=== PATIENT | female | born 1960 | race Caucasian/White ===

== ENCOUNTER → 2020-04-29 | Outpatient (CLI) | payer OTHER ==
[~2020-04-29] MED LIST: AMLODIPINE BESY10 MG PO; ARTIFICIAL TEAR15 M6 EYEBOTH; CARAFATE1 GM PO; ESCITALOPRAM OX10 MG PO; HYDROCODONE BIT10 MG PO; HYDROXYZINE HCL10 MG PO; KISQALI PO; LEXAPRO10 MG PO; NORCO 5-325 TA1 EACH PO; NORVASC10 MG PO; PHENERGAN 25 MG25 M1 PO; PROMETHAZINE HC25 M1 PO; PROTONIX 40 MG40 M1 PO; PROTONIX40 MG PO; TYLENOL 500 MG500 MG PO
[2020-04-29 09:37] LABS: HEMOGLOBIN 12.2 gm/dl (12.3-15.3); RED BLOOD COUNT 4.44 M/UL (4.00-5.10); WHITE BLOOD COUNT 7.8 K/UL (4.5-11.0)
[2020-04-29 10:04] LABS: BUN/CREATININE RATIO 12 (0-10)
== END ==
LOC: CT 08:30
PROVIDERS: Internal Medicine Hematology & Oncology
DX: C50.811 Malignant neoplasm of overlapping sites of right female breast (principal); C79.51 Secondary malignant neoplasm of bone; R91.8 Other nonspecific abnormal finding of lung field; K76.89 Other specified diseases of liver; K83.8 Other specified diseases of biliary tract; Z90.49 Acquired absence of other specified parts of digestive tract; K57.90 Diverticulosis of intestine, part unspecified, without perforation or abscess without bleeding
CPT/HCPCS: 36415; 71260; 80053; 85025; Q9967

== ENCOUNTER → 2020-06-27 | Outpatient (CLI) | payer OTHER | LOC: CT 11:33 | DX: C50.811 Malignant neoplasm of overlapping sites of right female breast (principal); C79.51 Secondary malignant neoplasm of bone; Z17.0 Estrogen receptor positive status [ER+]; R91.8 Other nonspecific abnormal finding of lung field; K76.89 Other specified diseases of liver | CPT/HCPCS: 36415; 71260; 82565; Q9967 ==

== ENCOUNTER → 2020-09-18 | Outpatient (CLI) | payer OTHER ==
[2020-09-18 13:56] LABS: HEMOGLOBIN 11.7 gm/dl (12.3-15.3); RED BLOOD COUNT 4.34 M/UL (4.00-5.10); WHITE BLOOD COUNT 3.5 K/UL (4.5-11.0)
[2020-09-18 14:37] LABS: BUN/CREATININE RATIO 11 (0-10)
== END ==
LOC: LAB 13:18
PROVIDERS: Internal Medicine Hematology & Oncology
DX: C50.811 Malignant neoplasm of overlapping sites of right female breast (principal); C79.51 Secondary malignant neoplasm of bone; Z17.0 Estrogen receptor positive status [ER+]; Z85.3 Personal history of malignant neoplasm of breast
CPT/HCPCS: 36415; 80053; 85025

== ENCOUNTER → 2020-09-19 | Outpatient (CLI) | payer OTHER | LOC: CT 08:53 | DX: C50.811 Malignant neoplasm of overlapping sites of right female breast (principal); C79.51 Secondary malignant neoplasm of bone; C78.7 Secondary malignant neoplasm of liver and intrahepatic bile duct; M89.9 Disorder of bone, unspecified; K83.1 Obstruction of bile duct; E27.9 Disorder of adrenal gland, unspecified; Z17.0 Estrogen receptor positive status [ER+]; Z85.3 Personal history of malignant neoplasm of breast | CPT/HCPCS: 71260; Q9967 ==

== ENCOUNTER → 2020-10-03 | Day surgery (SDC) | payer OTHER | END | disposition home or self-care (01) | LOC: OR 06:11 | PROVIDERS: Surgery | PROC: 02HV33Z Insertion of Infusion Device into Superior Vena Cava, Percutaneous Approach (ICD-10-PCS; principal; 2020-10-03 07:30) | DX: C50.911 Malignant neoplasm of unspecified site of right female breast (principal); C79.51 Secondary malignant neoplasm of bone; I10 Essential (primary) hypertension; I38 Endocarditis, valve unspecified; K21.9 Gastro-esophageal reflux disease without esophagitis; G43.909 Migraine, unspecified, not intractable, without status migrainosus; M19.90 Unspecified osteoarthritis, unspecified site; G89.29 Other chronic pain; M54.9 Dorsalgia, unspecified; Z88.0 Allergy status to penicillin; Z88.2 Allergy status to sulfonamides; Z88.5 Allergy status to narcotic agent; Z88.8 Allergy status to other drugs, medicaments and biological substances; Z91.040 Latex allergy status; Z91.048 Other nonmedicinal substance allergy status; Z79.899 Other long term (current) drug therapy; Z90.11 Acquired absence of right breast and nipple; Z87.11 Personal history of peptic ulcer disease | CPT/HCPCS: 77001; C1769; C1788; J0690; J1100; J1642; J2001; J2250; J2405; J2704; J3010; J7030; J7040; J7120 ==

== ENCOUNTER → 2021-02-05 | Outpatient (CLI) | payer OTHER | LOC: CT 01-13 08:00 | DX: C50.811 Malignant neoplasm of overlapping sites of right female breast (principal); C79.51 Secondary malignant neoplasm of bone; C78.7 Secondary malignant neoplasm of liver and intrahepatic bile duct; E27.9 Disorder of adrenal gland, unspecified; Z85.3 Personal history of malignant neoplasm of breast; Z17.0 Estrogen receptor positive status [ER+] | CPT/HCPCS: 36415; 71260; 82565; Q9967 ==

== ENCOUNTER → 2021-04-29 | Outpatient (CLI) | payer OTHER | LOC: US 08:00 | DX: C50.811 Malignant neoplasm of overlapping sites of right female breast (principal); C79.51 Secondary malignant neoplasm of bone; Z85.3 Personal history of malignant neoplasm of breast; Z17.0 Estrogen receptor positive status [ER+] | CPT/HCPCS: 76705 ==

== ENCOUNTER → 2021-07-16 | Outpatient (CLI) | payer OTHER ==
[~2021-07-16] MED LIST changes: +ELIQUIS5 MG PO
[2021-07-16 08:08] LABS: RED BLOOD COUNT 3.09 M/UL (4.00-5.10); WHITE BLOOD COUNT 2.9 K/UL (4.5-11.0)
[2021-07-16 09:38] LABS: BUN/CREATININE RATIO 15 (0-10)
== END ==
LOC: CT 07:44
PROVIDERS: Internal Medicine Hematology & Oncology
DX: C50.811 Malignant neoplasm of overlapping sites of right female breast (principal); C79.51 Secondary malignant neoplasm of bone; C78.7 Secondary malignant neoplasm of liver and intrahepatic bile duct; Z85.3 Personal history of malignant neoplasm of breast; Z17.0 Estrogen receptor positive status [ER+]
CPT/HCPCS: 36415; 71260; 80053; 85027; Q9967

== ENCOUNTER 2021-07-18 14:11 | Emergency (ER) | payer OTHER ==
[~2021-07-18 14:11] MED LIST changes: -ELIQUIS5 MG PO
[2021-07-18] MEDS ORDERED: ELIQUIS5 MG PO (17:09)
== END 2021-07-18 17:16 | disposition home or self-care (01) ==
LOC: ER1 14:11
DX: I82.4Z1 Acute embolism and thrombosis of unspecified deep veins of right distal lower extremity (principal); C50.919 Malignant neoplasm of unspecified site of unspecified female breast; C78.7 Secondary malignant neoplasm of liver and intrahepatic bile duct; C79.51 Secondary malignant neoplasm of bone; Z88.0 Allergy status to penicillin; Z88.2 Allergy status to sulfonamides; Z88.5 Allergy status to narcotic agent; I10 Essential (primary) hypertension
CPT/HCPCS: 93005; 99283

== ENCOUNTER → 2021-07-18 | Outpatient (CLI) | payer OTHER | LOC: EXRD 13:14 | DX: C79.51 Secondary malignant neoplasm of bone (principal); C50.811 Malignant neoplasm of overlapping sites of right female breast; Z85.3 Personal history of malignant neoplasm of breast; Z17.0 Estrogen receptor positive status [ER+]; I82.441 Acute embolism and thrombosis of right tibial vein | CPT/HCPCS: 93970 ==

== ENCOUNTER → 2021-08-20 | Outpatient (CLI) | payer OTHER ==
[~2021-08-20] MED LIST changes: +ELIQUIS5 MG PO
[2021-08-20 09:49] LABS: HEMOGLOBIN 11.1 gm/dl (12.3-15.3); RED BLOOD COUNT 3.63 M/UL (4.00-5.10); WHITE BLOOD COUNT 3.7 K/UL (4.5-11.0)
== END ==
LOC: US 09:26
PROVIDERS: Internal Medicine Hematology & Oncology
DX: R18.8 Other ascites (principal); C50.811 Malignant neoplasm of overlapping sites of right female breast; C79.51 Secondary malignant neoplasm of bone; Z17.0 Estrogen receptor positive status [ER+]; Z85.3 Personal history of malignant neoplasm of breast
CPT/HCPCS: 36415; 85027; 85610; 85730

== ENCOUNTER → 2021-09-01 | Outpatient (CLI) | payer OTHER ==
[~2021-09-01] VITALS: Ht 157.5 cm; Wt 84.4 kg
[2021-09-01 11:04] LABS: HEMOGLOBIN 9.8 gm/dl (12.3-15.3); RED BLOOD COUNT 3.27 M/UL (4.00-5.10); WHITE BLOOD COUNT 4.3 K/UL (4.5-11.0)
== END ==
LOC: OPSV 10:15 → US 10:30
PROVIDERS: Internal Medicine Hematology & Oncology
DX: R18.8 Other ascites (principal)
CPT/HCPCS: 71045; 85027; 85610; 85730; 96365; J1642; P9047

== ENCOUNTER → 2021-09-08 | Outpatient (CLI) | payer OTHER | LOC: OPSV 09:36 → US 09:36 | DX: R18.8 Other ascites (principal); C50.811 Malignant neoplasm of overlapping sites of right female breast; C79.51 Secondary malignant neoplasm of bone; Z85.3 Personal history of malignant neoplasm of breast; Z17.0 Estrogen receptor positive status [ER+] | CPT/HCPCS: 96365; J1642; P9047 ==

== ENCOUNTER → 2021-09-16 | Outpatient (CLI) | payer OTHER | LOC: OPSV 09:56 → US 10:00 | DX: R18.8 Other ascites (principal); K76.9 Liver disease, unspecified | CPT/HCPCS: 96365; J1642; P9047 ==

== ENCOUNTER → 2021-09-19 | Outpatient (CLI) | payer OTHER | LOC: LAB 13:00 | DX: C50.811 Malignant neoplasm of overlapping sites of right female breast (principal); C79.51 Secondary malignant neoplasm of bone; Z85.3 Personal history of malignant neoplasm of breast; Z17.0 Estrogen receptor positive status [ER+] | CPT/HCPCS: 36415; 80076 ==

== ENCOUNTER → 2021-09-23 | Outpatient (CLI) | payer OTHER ==
[~2021-09-23] VITALS: Ht 157.5 cm; Wt 84.4 kg
== END ==
LOC: OPSV 09:54 → US 10:00
DX: R18.8 Other ascites (principal); K76.9 Liver disease, unspecified
CPT/HCPCS: 96365; J1642; P9047